=== PATIENT | male | born 1985 | race African-American/Black ===

== ENCOUNTER 2022-06-30 07:16 | Emergency (ER) | payer MEDICAID ==
[~2022-06-30] VITALS: Ht 172.7 cm; Wt 59.1 kg
[2022-06-30 07:25] VITALS: BP 136/90
[2022-06-30] MEDS ORDERED: CARB15DR63 LEFT EAR (12:47)
== END 2022-06-30 13:27 | disposition home or self-care (01) ==
LOC: ER 07:16
DX: H61.22 Impacted cerumen, left ear (principal); I10 Essential (primary) hypertension
CPT/HCPCS: 99282